=== PATIENT | female | born 1970 | race Caucasian/White ===

== ENCOUNTER 2017-11-20 06:04 | Day surgery (SDC) | payer OTHER ==
[2017-11-20] MEDS ORDERED: ROCURONIUM 50 MG INJ (06:26)
[2017-11-20] MEDS ORDERED: FENTAnyl 50 MCG/ML VIAL ×2 (06:26→09:46)
[2017-11-20] MEDS ORDERED: NEOSTIGMINE 3 MG/3 ML SYRINGE (06:26)
[2017-11-20] MEDS ORDERED: GLYCOPYRROLATE 0.4 MG INJ (06:26)
[2017-11-20] MEDS ORDERED: LIDOCAINE 2% (SDV) 5 ML INJ (06:26)
[2017-11-20] MEDS ORDERED: PROPOFOL 20 ML (06:26)
[2017-11-20] MEDS ORDERED: MIDAZOLAM 1 MG/ML 2 ML INJ (06:26)
[2017-11-20] MEDS ORDERED: ONDANSETRON 4 MG INJ (06:27)
[2017-11-20] MEDS ORDERED: DEXAMETHASONE 4 MG/ML 1 ML INJ (06:27)
[2017-11-20] MEDS ORDERED: LABETALOL HCL 20MG INJ IV (06:30)
[2017-11-20] MEDS ORDERED: CEFAZOLIN 2 GM/50 ML (PMX) 50 ML IVPB (06:30)
[2017-11-20] MEDS ORDERED: FENTAnyl 50 MCG/ML VIAL IV (06:30)
[2017-11-20] MEDS ORDERED: ATROPINE 1 MG/10 ML SYRINGE IV (06:30)
[2017-11-20] MEDS ORDERED: hydrALAzine 20 MG INJ IV (06:30)
[2017-11-20] MEDS ORDERED: DIPHENHYDRAMINE 50 MG INJ IV (06:30)
[2017-11-20] MEDS ORDERED: EPHEDrine SULFATE 50 MG/5 ML SYG IV (06:30)
[2017-11-20] MEDS ORDERED: MIDAZOLAM 1 MG/ML 2 ML INJ IV (06:30)
[2017-11-20] MEDS ORDERED: SUCCINYLCHOLINE CHLORIDE 100 MG/5 ML SYG IV (06:31)
[2017-11-20] MEDS ORDERED: CEFAZOLIN 1 GM INJ (06:34)
[2017-11-20 07:04] LABS: ADD MAN DIFF? NO
[2017-11-20 07:05] LABS: BASOPHIL # 0.1 10^3/ul (0.0-0.1); BASOPHILS % 0.6 % (0.0-2.0); EOSINOPHILS # 0.5 10^3/ul (0.0-0.5); EOSINOPHILS % 5.9 % (0.0-7.0); HEMOGLOBIN 12.9 g/dl (12.0-16.0); LYMPHOCYTES # 2.6 10^3/ul (0.8-2.9); LYMPHOCYTES % 29.1 % (15.0-51.0); MEAN CORPUSCULAR HEMOGLOBIN 30.1 pg (29.0-33.0); MEAN CORPUSCULAR HGB CONC 33.1 g/dl (32.0-37.0); MEAN CORPUSCULAR VOLUME 91.1 fl (82.0-101.0); MEAN PLATELET VOLUME 9.1 fl (7.4-10.4); MONOCYTE # 0.6 10^3/ul (0.3-0.9); MONOCYTES % 7.3 % (0.0-11.0); NEUTROPHILS % 56.9 % (39.0-77.0); PLATELET COUNT 246 10^3/UL (140-415); RED BLOOD COUNT 4.28 10^6/ul (4.20-5.40); RED CELL DISTRIBUTION WIDTH 13.5 % (11.5-14.5)
[2017-11-20 07:05] LABS: WHITE BLOOD COUNT 8.8 10^3/ul (4.8-10.8)
[2017-11-20] MEDS ORDERED: SODIUM CL BACTERIOSTATIC 30 ML INJ (07:06)
[2017-11-20 07:24] LABS: INR 0.87; PROTIME 11.9 Sec (11.9-14.9); PT RATIO 0.9
[2017-11-20 07:25] LABS: PARTIAL THROMBOPLASTIN TIME 33.7 Sec (25.0-35.0)
[2017-11-20 07:27] LABS: ANION GAP 9 (8-16); BLOOD UREA NITROGEN 14 mg/dl (7-20); CALCIUM 8.8 mg/dl (8.4-10.2); CARBON DIOXIDE 28 mmol/L (21-31); CHLORIDE 106 mmol/L (97-110); CREATININE 0.87 mg/dl (0.44-1.00); GLUCOSE 94 mg/dl (70-220); POTASSIUM 3.7 mmol/L (3.5-5.1); SODIUM 139 mmol/L (135-144)
[2017-11-20] MEDS: morphine SULFATE/PF (10 MG/10 ML) INJ (08:26)
[2017-11-20] MEDS: EPINEPHrine 1 MG/ML 30 ML INJ IRR (08:29)
[2017-11-20] MEDS ORDERED: LABETALOL HCL 20MG INJ (08:49)
[2017-11-20] MEDS: ONDANSETRON 4 MG INJ IV (10:02)
[2017-11-20] MEDS: FENTAnyl 50 MCG/ML VIAL IV ×4 (10:03→10:46)
[2017-11-20] MEDS: MEPERIDINE 25 MG INJ IV (10:08)
[2017-11-20] MEDS: morphine 2 MG INJ IV (10:18)
== END 2017-11-20 11:32 | disposition home or self-care (01) ==
LOC: SDS 06:04
DX: S83.232A Complex tear of medial meniscus, current injury, left knee, initial encounter (principal); M65.862 Other synovitis and tenosynovitis, left lower leg; E66.09 Other obesity due to excess calories; J45.909 Unspecified asthma, uncomplicated; Z79.01 Long term (current) use of anticoagulants; X58.XXXA Exposure to other specified factors, initial encounter; Y93.89 Activity, other specified; Y92.89 Other specified places as the place of occurrence of the external cause; Y99.8 Other external cause status
CPT/HCPCS: 29881; 80048; 84703; 85025; 85610; 85730